=== PATIENT | female | born 2000 | race Two or more races ===

== ENCOUNTER 2024-11-14 09:37 | Emergency (ER) | payer MEDICAID, OTHER ==
[~2024-11-14] VITALS: Ht 160 cm; Wt 65.3 kg
[2024-11-14 10:25] VITALS: BP 139/91; PULSE 108; RESP 16; TEMP 98.4; O2SAT 95
[2024-11-14 11:09] LABS: Rapid Influenza B Negative (Negative)
[2024-11-14 11:15] LABS: Rapid Influenza A Positive (Negative)
--- NOTE | 2024-11-14 11:16 | ED.PDOC ---
History of Present Illness HPI Comments This 24-year-old female presents secondary to a 3 day history of nasal bleeding, sore throat and cough. She was sick contacts and her son. She has been chest discomfort with deep inspiration only. She was fever, chills, sweats, nausea or vomiting. Denies any other palliative provocative factors. Denies modifying factors. Denies radiation of her symptoms. Denies pain. Chief Complaint: Flu like Time Seen by MD: 09:54 Allergies: Coded Allergies: No Known Drug Allergy (Verified Allergy, Unknown, 11/14/24) Mode of Arrival: Ambulatory Past Medical History PAST MEDICAL HISTORY: Denies Surgical History: Denies all surgeries Constitutional: reports: fatigue; denies: chills, diaphoresis, fever, malaise, sweats, weakness, others EENTM: reports: nose congestion; denies: blurred vision, double vision, ear bleeding, ear discharge, ear drainage, ear pain, ear ringing, eye pain, eye redness, hearing loss, mouth pain, mouth swelling, nasal discharge, nose bleeding, nose pain, photophobia, tearing, throat pain, throat swelling, voice changes, others Respiratory: reports: cough Cardiovascular: denies: chest pain, dizzy spells, diaphoresis, Dyspnea on exertion, edema, irregular heart beat, left arm pain, lightheadedness, palpitations, PND, syncope, others Gastrointestinal: denies: abdomen distended, abdominal pain, constipated, diarrhea, difficulty swallowing, nausea, poor appetite Genitourinary: denies: dysuria, frequency, hematuria, incontinence, pain Neurological: denies: dizziness, fainting, headache, numbness Musculoskeletal: denies: back pain, joint pain, neck pain Hematologic/Lymphatic: denies: anemia, easy bleeding Endocrine: denies: excessive hunger, excessive sweating, excessive thirst, excessive urination Psychiatric: denies: anxiety Physical Exam General Appearance: No Apparent Distress, Normal HEENT: Normal ENT Inspection, PERRL/EOMI, Pharynx Normal, TMs Normal Neck: Non-Tender, Normal, Supple Respiratory: Chest Non-Tender, Lungs Clear Cardiovascular: Normal Peripheral Pulses, Regular Rate/Rhythm Breast Exam: Deferred Gastrointestinal: Non Tender, Normal Bowel Sounds Genitalia: Deferred Pelvic: Deferred Rectal: Deferred Extremities: Non-tender, No pedal edema Neurologic: pole maker II-XII nml as Tested, Normal Mood, No Sensory Deficits Cerebellar Function: NOT DONE Reflexes: NOT DONE Skin: Normal Color, Warm Lymphatic: NOT DONE Was a procedure done? Was a procedure done?: No Differential Dx Considerations may include: Lungs are, COVID-19, RSV,, cold, toxin exposure, allergy X-Ray, Labs, Meds, VS Vital Signs Date Time Temp Pulse Resp B/P (MAP) Pulse Ox O2 Delivery O2 Flow Rate FiO2 11/14/24 10:25 98.4 108 16 139/91 (107) 95 98.4 11/14/24 10:25 108 16 95 Room Air 11/14/24 09:57 16 95 Room Air* 0 21 11/14/24 09:57 98.4 108 16 139/91 (107) 95 Lab Test 11/14/24 10:17 Range/Units Influenza Type A Antigen Positive Negative Influenza Type B Antigen Negative Negative Time of 1ST Reevaluation: 11:32 Reevaluation 1ST: Resolved Patient Education/Counseling: Diagnosis Family Education/Counseling: No Family Present Departure 1 Departure Time of Disposition: 11:31 Impression: Primary Impression: Influenza A Additional Impressions: Cough Nasal congestion Disposition: 01 HOME / SELF CARE / HOMELESS Condition: Fair Critical Care Note Critical Care Time?: No Stability Stability form required: No Heart Score Heart Score: Heart Score Response (Comments) Value History N/A 0 EKG N/A 0 Age N/A 0 Risk Factors N/A 0 Troponin N/A 0 Total 0 ANI WILSON MD Nov 14, 2024 11:16
[2024-11-14] MEDS ORDERED: OSEL75CA5 PO ×2 (11:42→12:20)
== END 2024-11-14 12:25 | disposition home or self-care (01) ==
LOC: ER 09:37
DX: J10.1 Influenza due to other identified influenza virus with other respiratory manifestations (principal); R05.9 Cough, unspecified; R09.81 Nasal congestion; R04.0 Epistaxis
CPT/HCPCS: 87804